=== PATIENT | male | born 1940 | race Caucasian/White ===

== ENCOUNTER → 2021-04-01 13:40 | Outpatient (CLI) | payer MEDICARE, BC, SELFPAY ==
--- NOTE | 2021-04-01 | DI.MRI.S_ITS ---
PROCEDURE: MR LUMBAR SPINE WO CON INDICATIONS: Spinal stenosis, lumbar region with neurogenic cla TECHNIQUE: Noncontrast sagittal T1 spin echo and T2 fast echo, sagittal STIR, axial T1 and T2 fast spin echo through the lumbar spine. In cases with scoliosis, additional coronal T2 fast spin echo may be performed. COMPARISON: [facility], CR, XR LUMBAR SPINE WITH OBLIQUES, 03/23/2021, 12:13. FINDINGS: Image quality: Excellent. Alignment and Curvature: Trace degenerative anterolisthesis of L4 on L5. Bone Marrow: Marrow is of normal overall signal. No acute vertebral body compression fractures. Spinal Cord: Conus medullaris terminates at the L1 level. Visualized cord demonstrates normal signal and size. Paraspinous Soft Tissues: No paravertebral masses. T12-L1: No canal stenosis or foraminal stenosis. L1-L2: Minimal disc bulge. Facet hypertrophy. No canal stenosis Mild right foraminal stenosis. L2-L3: Disc bulge. Facet hypertrophy. Mild canal stenosis. Mild bilateral foraminal stenosis, right greater than left. L3-L4: Posterior annulus tear. Mild disc bulge. Owwe-xm-qjxympoo canal stenosis. Moderate bilateral foraminal narrowing with mild flattening deformity on the exiting bilateral L3 nerve root sleeves. L4-L5: Disc bulge. Facet and ligament hypertrophy. Severe canal stenosis. Moderate bilateral foraminal narrowing with mild flattening deformity on the exiting bilateral L4 nerve roots. L5-S1: Disc bulge. Facet hypertrophy. Mild canal stenosis. Mild bilateral foraminal stenosis. IMPRESSION: 1. Multilevel canal stenosis, mild at L2-L3, [id number] at L3-L4, severe at L4-L5, and mild at L5-S1. 2. Multilevel foraminal narrowing as described above. 3. Multilevel facet arthropathy. Dictated by: Cal Guo M.D. on 04/01/2021 at 15:22 Approved by: Cal Guo M.D. on 04/01/2021 at 15:27
== END ==
PROVIDERS: PCP Internal Medicine; Referring Provider Physical Medicine & Rehabilitation; Visit Provider Physical Medicine & Rehabilitation
DX: M48.062 Spinal stenosis, lumbar region with neurogenic claudication (principal); M48.07 Spinal stenosis, lumbosacral region; M47.816 Spondylosis without myelopathy or radiculopathy, lumbar region; M47.817 Spondylosis without myelopathy or radiculopathy, lumbosacral region
CPT/HCPCS: 72148